=== PATIENT | female | born 1935 | race Two or more races ===

== ENCOUNTER → 2017-03-24 | Outpatient (REF) | payer MEDICARE ==
[2017-03-24 19:30] LABS: CALCIUM LEVEL 9.2 MG/DL (8.8-10.2); CREATININE FOR GFR 1.1 MG/DL (0.55-1.02); GLOMERULAR FILTRATION RATE 50.6 (>32)
== END ==
LOC: M SFHCCLAY 11:08
PROVIDERS: ATTEND Family Medicine
DX: E11.9 Type 2 diabetes mellitus without complications (principal); I10 Essential (primary) hypertension

== ENCOUNTER → 2017-06-17 | Outpatient (REF) | payer MEDICARE ==
[2017-06-17 17:08] LABS: ALBUMIN 3.5 GM/DL (3.2-5.2); ALBUMIN/GLOBULIN RATIO 1.03 (1.00-1.93); BILIRUBIN,TOTAL 0.4 MG/DL (0.2-1.0); CALCIUM LEVEL 9.2 MG/DL (8.8-10.2); CREATININE FOR GFR 1.16 MG/DL (0.55-1.02); GLOMERULAR FILTRATION RATE 47.5 (>32); TOTAL PROTEIN 6.9 GM/DL (6.4-8.2)
== END ==
LOC: M SFHCCLAY 09:49
PROVIDERS: ATTEND Family Medicine
DX: I10 Essential (primary) hypertension (principal); E11.9 Type 2 diabetes mellitus without complications; M35.3 Polymyalgia rheumatica; E55.9 Vitamin D deficiency, unspecified; R26.89 Other abnormalities of gait and mobility; G62.9 Polyneuropathy, unspecified; L72.3 Sebaceous cyst; M53.3 Sacrococcygeal disorders, not elsewhere classified

== ENCOUNTER → 2018-03-09 | Outpatient (CLI) | payer MEDICARE, MEDICAID | LOC: M CLY 11:25 | DX: M16.11 Unilateral primary osteoarthritis, right hip (principal); M25.851 Other specified joint disorders, right hip; M85.88 Other specified disorders of bone density and structure, other site; M25.711 Osteophyte, right shoulder; M25.811 Other specified joint disorders, right shoulder; M25.511 Pain in right shoulder; M53.3 Sacrococcygeal disorders, not elsewhere classified; E11.22 Type 2 diabetes mellitus with diabetic chronic kidney disease; Z98.890 Other specified postprocedural states | CPT/HCPCS: 73030; 80053 ==

== ENCOUNTER → 2018-03-09 | Outpatient (REF) | payer MEDICARE, MEDICAID ==
[2018-03-09 17:06] LABS: ALBUMIN 3.6 GM/DL (3.2-5.2); ALBUMIN/GLOBULIN RATIO 1.09 (1.00-1.93); ALKALINE PHOSPHATASE 51 U/L (45-117); ALT/SGPT 15 U/L (12-78); ANION GAP 5 MEQ/L (8-16); AST/SGOT 11 U/L (7-37); BILIRUBIN,TOTAL 0.2 MG/DL (0.2-1.0); BLOOD UREA NITROGEN 34 MG/DL (7-18); CALCIUM LEVEL 8.9 MG/DL (8.8-10.2); CARBON DIOXIDE LEVEL 28 MEQ/L (21-32); CHLORIDE LEVEL 111 MEQ/L (98-107); CREATININE FOR GFR 1.27 MG/DL (0.55-1.30); GLOMERULAR FILTRATION RATE 42.8 (>32); GLUCOSE, FASTING 132 MG/DL (70-100); SODIUM LEVEL 144 MEQ/L (136-145); TOTAL PROTEIN 6.9 GM/DL (6.4-8.2)
[2018-03-09 19:59] LABS: ESTIMATED AVERAGE GLUCOSE 134 MG/DL (60-110); HEMOGLOBIN A1c 6.3 %
== END ==
LOC: M SFHCCLAY 11:14
DX: E11.9 Type 2 diabetes mellitus without complications (principal)
CPT/HCPCS: 80053

== ENCOUNTER 2018-06-14 11:02 | Emergency (ER) | payer MEDICARE, MEDICAID ==
[2018-06-14] MEDS: LIDOCAINE 1% MDV 20ML VIAL SC (12:45)
[2018-06-14] MEDS: ADACEL/BOOSTRIX VACCINE (DIPHTH/PERTUSS/ACELL/TETANUS)0.5ML SYR (90715) IM (14:12)
== END 2018-06-14 14:30 | disposition home or self-care (01) ==
LOC: M ED 11:02
DX: S01.511A Laceration without foreign body of lip, initial encounter (principal); S41.102A Unspecified open wound of left upper arm, initial encounter; W01.0XXA Fall on same level from slipping, tripping and stumbling without subsequent striking against object, initial encounter; Y92.098 Other place in other non-institutional residence as the place of occurrence of the external cause; E11.9 Type 2 diabetes mellitus without complications; I12.9 Hypertensive chronic kidney disease with stage 1 through stage 4 chronic kidney disease, or unspecified chronic kidney disease; N18.3 Chronic kidney disease, stage 3 (moderate); Z88.0 Allergy status to penicillin; Z87.891 Personal history of nicotine dependence; Z96.641 Presence of right artificial hip joint; Z79.899 Other long term (current) drug therapy; Z79.52 Long term (current) use of systemic steroids; Z79.82 Long term (current) use of aspirin; Z79.84 Long term (current) use of oral hypoglycemic drugs
CPT/HCPCS: 90715

== ENCOUNTER 2018-07-17 15:36 | Inpatient (IN) | payer MEDICARE, MEDICAID ==
[2018-07-17] MEDS: FUROSEMIDE 40 MG/4 ML VIAL (J1940) IV (16:51)
[2018-07-17 17:05] LABS: BASO % 0.4 % (0.0-1.0); EOS # 0.1 10^3/uL (0.0-0.50); EOS % 0.5 % (0.0-3.0); HEMATOCRIT 26.1 % (36.0-47.0); HEMOGLOBIN 8.3 g/dl (12.0-15.5); IMMATURE GRANULOCYTE % 0.7 % (0-3.0); LYMPH # 1.9 10^3/uL (1.5-4.5); LYMPH % 18.5 % (24.0-44.0); MEAN CORPUSCULAR HEMOGLOBIN 29.9 pg (27.0-33.0); MEAN CORPUSCULAR HGB CONC 31.8 g/dl (32.0-36.5); MEAN CORPUSCULAR VOLUME 93.9 fl (80.0-96.0); MONO # 0.8 10^3/uL (0.0-0.8); MONO % 7.7 % (0.0-5.0); NEUTROPHILS # 7.3 10^3/uL (1.8-7.7); NEUTROPHILS % 72.2 % (36.0-66.0); PLATELET COUNT, AUTOMATED 265 10^3/uL (150-450); RED BLOOD COUNT 2.78 10^6/uL (4.00-5.40); RED CELL DISTRIBUTION WIDTH 15.4 % (11.5-14.5); WHITE BLOOD COUNT 10.1 10^3/uL (4.0-10.0)
[2018-07-17 17:30] LABS: ANION GAP 9 MEQ/L (8-16); BLOOD UREA NITROGEN 37 MG/DL (7-18); CALCIUM LEVEL 9.2 MG/DL (8.8-10.2); CARBON DIOXIDE LEVEL 23 MEQ/L (21-32); CHLORIDE LEVEL 113 MEQ/L (98-107); CPK CREATINE PHOSPHOKINASE 39 U/L (26-192); CREATININE FOR GFR 1.33 MG/DL (0.55-1.30); GLOMERULAR FILTRATION RATE 40.5 (>32); GLUCOSE, FASTING 132 MG/DL (70-100); MB/CK RELATIVE INDEX 3.33 (< OR =4); NT-PRO BNP 5359 PG/ML (<450); POTASSIUM SERUM 4.9 MEQ/L (3.5-5.1); SODIUM LEVEL 145 MEQ/L (136-145); TROPONIN I < 0.02 NG/ML (< 0.10)
[2018-07-17] MEDS ORDERED: GLUCOSE 4 GM CHEW TABLET PO (19:15)
[2018-07-17] MEDS ORDERED: DEXTROSE 50% 50 ML SYRINGE IV (19:15)
[2018-07-17] MEDS ORDERED: GLUCAGON FOR INJ 1 MG VIAL (J1610) SC (19:15)
[2018-07-17] MEDS ORDERED: ACETAMINOPHEN TAB 650MG DOSE (2X325MG) PO (19:30)
[2018-07-17 20:58] LABS: BEDSIDE GLUCOSE 89 MG/DL (83-110)
[2018-07-17] MEDS: SENOKOT S TAB PO (21:00)
[2018-07-17] MEDS: HumaLOG INSULIN (NovoLOG) PER UNIT SC (21:00)
[2018-07-17] MEDS: PREGABALIN 25 MG CAP (LYRICA) PO (21:39)
[2018-07-17] MEDS: VITAMIN D 1,000 INTERNATIONAL UNITS TABLET PO (21:42)
[2018-07-17] MEDS: MELOXICAM (MOBIC) 7.5 MG TAB PO (21:43)
[2018-07-17] MEDS: CARVedilol 12.5 MG TAB PO (21:43)
[2018-07-17] MEDS: HEPARIN SOD (PORCINE) 5000 UNITS/ML VIAL SC (21:44)
[2018-07-17 21:50] LABS: RETIC HEMOGLOBIN EQUIVALENT 33.3 pg (24-36); RETICULOCYTE # 54.6 10^9/L (17-77); RETICULOCYTE % 1.8 % (0.5-1.5)
[2018-07-17 23:39] LABS: CPK CREATINE PHOSPHOKINASE 42 U/L (26-192); FERRITIN 103 NG/ML (8-252); IRON (FE) 31 UG/DL (50-170); TOTAL IRON BINDING CAPACITY 309 UG/DL (250-450); TROPONIN I < 0.02 NG/ML (< 0.10)
[2018-07-18] MEDS: FUROSEMIDE 40 MG/4 ML VIAL (J1940) IV ×5 (00:43→23:42)
[2018-07-18 04:44] LABS: HEMATOCRIT 26.2 % (36.0-47.0); HEMOGLOBIN 8.5 g/dl (12.0-15.5); MEAN CORPUSCULAR HEMOGLOBIN 30.4 pg (27.0-33.0); MEAN CORPUSCULAR HGB CONC 32.4 g/dl (32.0-36.5); MEAN CORPUSCULAR VOLUME 93.6 fl (80.0-96.0); PLATELET COUNT, AUTOMATED 239 10^3/uL (150-450); RED CELL DISTRIBUTION WIDTH 15.1 % (11.5-14.5); WHITE BLOOD COUNT 10.8 10^3/uL (4.0-10.0)
[2018-07-18 05:13] LABS: ALBUMIN 3.2 GM/DL (3.2-5.2); ALBUMIN/GLOBULIN RATIO 1.19 (1.00-1.93); ALKALINE PHOSPHATASE 76 U/L (45-117); ALT/SGPT 13 U/L (12-78); ANION GAP 8 MEQ/L (8-16); AST/SGOT 9 U/L (7-37); BILIRUBIN,DIRECT 0.1 MG/DL (0.0-0.2); BILIRUBIN,TOTAL 0.4 MG/DL (0.2-1.0); BLOOD UREA NITROGEN 35 MG/DL (7-18); CALCIUM LEVEL 8.7 MG/DL (8.8-10.2); CARBON DIOXIDE LEVEL 29 MEQ/L (21-32); CHLORIDE LEVEL 110 MEQ/L (98-107); CPK CREATINE PHOSPHOKINASE 30 U/L (26-192); CREATININE FOR GFR 1.27 MG/DL (0.55-1.30); GLOMERULAR FILTRATION RATE 42.7 (>32); GLUCOSE, FASTING 94 MG/DL (70-100); MAGNESIUM LEVEL 1.6 MG/DL (1.8-2.4); MB/CK RELATIVE INDEX 3.67 (< OR =4); POTASSIUM SERUM 3.7 MEQ/L (3.5-5.1); SODIUM LEVEL 147 MEQ/L (136-145); TOTAL PROTEIN 5.9 GM/DL (6.4-8.2); TROPONIN I 0.02 NG/ML (< 0.10)
[2018-07-18] MEDS: MAGNESIUM OXIDE 400 MG TAB (MAG-OX) PO (06:45)
[2018-07-18] MEDS: HumaLOG INSULIN (NovoLOG) PER UNIT SC ×4 (07:30→20:29)
[2018-07-18] MEDS: SENOKOT S TAB PO ×2 (09:17→20:33)
[2018-07-18] MEDS: HEPARIN SOD (PORCINE) 5000 UNITS/ML VIAL SC ×2 (09:20→20:28)
[2018-07-18] MEDS: amLODIPine 10 MG TAB PO (09:20)
[2018-07-18] MEDS: ASPIRIN 81 MG ENTERIC TAB PO (09:20)
[2018-07-18] MEDS: CARVedilol 12.5 MG TAB PO ×2 (09:21→20:29)
[2018-07-18] MEDS: predniSONE 5 MG TAB PO (09:21)
[2018-07-18] MEDS: LOSARTAN 50 MG TAB PO (09:21)
[2018-07-18] MEDS: PREGABALIN 25 MG CAP (LYRICA) PO ×2 (09:38→20:33)
[2018-07-18 09:48] LABS: FOLATE > 24.0 NG/ML (>5.4)
[2018-07-18 12:04] LABS: BEDSIDE GLUCOSE 258 MG/DL (83-110)
[2018-07-18 16:39] LABS: BEDSIDE GLUCOSE 100 MG/DL (83-110)
[2018-07-18] MEDS: VITAMIN D 1,000 INTERNATIONAL UNITS TABLET PO (20:27)
[2018-07-18] MEDS: MELOXICAM (MOBIC) 7.5 MG TAB PO (20:28)
[2018-07-18 20:30] LABS: BEDSIDE GLUCOSE 278 MG/DL (83-110)
[2018-07-19] MEDS: FUROSEMIDE 40 MG/4 ML VIAL (J1940) IV (05:48)
[2018-07-19 06:20] LABS: HEMATOCRIT 25.6 % (36.0-47.0); HEMOGLOBIN 8.4 g/dl (12.0-15.5); MEAN CORPUSCULAR HEMOGLOBIN 30.1 pg (27.0-33.0); MEAN CORPUSCULAR HGB CONC 32.8 g/dl (32.0-36.5); MEAN CORPUSCULAR VOLUME 91.8 fl (80.0-96.0); PLATELET COUNT, AUTOMATED 243 10^3/uL (150-450); RED BLOOD COUNT 2.79 10^6/uL (4.00-5.40); RED CELL DISTRIBUTION WIDTH 14.8 % (11.5-14.5); WHITE BLOOD COUNT 11.1 10^3/uL (4.0-10.0)
[2018-07-19 06:45] LABS: ANION GAP 10 MEQ/L (8-16); BLOOD UREA NITROGEN 47 MG/DL (7-18); CALCIUM LEVEL 8.8 MG/DL (8.8-10.2); CARBON DIOXIDE LEVEL 27 MEQ/L (21-32); CHLORIDE LEVEL 107 MEQ/L (98-107); GLOMERULAR FILTRATION RATE 32.7 (>32); GLUCOSE, FASTING 102 MG/DL (70-100); MAGNESIUM LEVEL 1.9 MG/DL (1.8-2.4); POTASSIUM SERUM 3.6 MEQ/L (3.5-5.1); SODIUM LEVEL 144 MEQ/L (136-145)
[2018-07-19] MEDS: HumaLOG INSULIN (NovoLOG) PER UNIT SC ×4 (07:43→20:32)
[2018-07-19] MEDS: HEPARIN SOD (PORCINE) 5000 UNITS/ML VIAL SC ×2 (08:31→20:31)
[2018-07-19] MEDS: CARVedilol 12.5 MG TAB PO ×2 (08:32→20:30)
[2018-07-19] MEDS: amLODIPine 10 MG TAB PO (08:33)
[2018-07-19] MEDS: LOSARTAN 50 MG TAB PO (08:33)
[2018-07-19] MEDS: ASPIRIN 81 MG ENTERIC TAB PO (08:33)
[2018-07-19] MEDS: SENOKOT S TAB PO ×2 (08:34→20:31)
[2018-07-19] MEDS: predniSONE 5 MG TAB PO (08:34)
[2018-07-19] MEDS: PREGABALIN 25 MG CAP (LYRICA) PO ×2 (08:43→20:30)
[2018-07-19 12:08] LABS: BEDSIDE GLUCOSE 191 MG/DL (83-110)
[2018-07-19] MEDS: SLF 3 ML SYR IV ×2 (13:11→21:10)
[2018-07-19 17:35] LABS: BEDSIDE GLUCOSE 299 MG/DL (83-110)
[2018-07-19 20:18] LABS: BEDSIDE GLUCOSE 153 MG/DL (83-110)
[2018-07-19] MEDS: MELOXICAM (MOBIC) 7.5 MG TAB PO (20:31)
[2018-07-19] MEDS: VITAMIN D 1,000 INTERNATIONAL UNITS TABLET PO (20:31)
[2018-07-20] MEDS: SLF 3 ML SYR IV ×4 (05:54→20:34)
[2018-07-20 05:58] LABS: HEMATOCRIT 26.7 % (36.0-47.0); HEMOGLOBIN 8.6 g/dl (12.0-15.5); MEAN CORPUSCULAR HEMOGLOBIN 29.5 pg (27.0-33.0); MEAN CORPUSCULAR HGB CONC 32.2 g/dl (32.0-36.5); MEAN CORPUSCULAR VOLUME 91.4 fl (80.0-96.0); PLATELET COUNT, AUTOMATED 255 10^3/uL (150-450); RED BLOOD COUNT 2.92 10^6/uL (4.00-5.40); RED CELL DISTRIBUTION WIDTH 14.8 % (11.5-14.5); WHITE BLOOD COUNT 11.7 10^3/uL (4.0-10.0)
[2018-07-20 06:22] LABS: ANION GAP 8 MEQ/L (8-16); BLOOD UREA NITROGEN 44 MG/DL (7-18); CARBON DIOXIDE LEVEL 27 MEQ/L (21-32); CHLORIDE LEVEL 106 MEQ/L (98-107); CREATININE FOR GFR 1.79 MG/DL (0.55-1.30); GLOMERULAR FILTRATION RATE 28.7 (>32); GLUCOSE, FASTING 99 MG/DL (70-100); MAGNESIUM LEVEL 1.8 MG/DL (1.8-2.4); POTASSIUM SERUM 3.4 MEQ/L (3.5-5.1); SODIUM LEVEL 141 MEQ/L (136-145)
[2018-07-20] MEDS: HumaLOG INSULIN (NovoLOG) PER UNIT SC ×4 (06:50→20:33)
[2018-07-20] MEDS: PREGABALIN 25 MG CAP (LYRICA) PO ×2 (08:45→20:23)
[2018-07-20] MEDS: CARVedilol 12.5 MG TAB PO ×2 (08:45→20:24)
[2018-07-20] MEDS: SENOKOT S TAB PO ×2 (08:46→20:24)
[2018-07-20] MEDS: amLODIPine 10 MG TAB PO (08:46)
[2018-07-20] MEDS: predniSONE 5 MG TAB PO (08:46)
[2018-07-20] MEDS: ASPIRIN 81 MG ENTERIC TAB PO (08:46)
[2018-07-20] MEDS: HEPARIN SOD (PORCINE) 5000 UNITS/ML VIAL SC ×2 (08:47→20:25)
[2018-07-20 11:33] LABS: BEDSIDE GLUCOSE 298 MG/DL (83-110)
[2018-07-20 12:37] LABS: KETONE, URINE AUTO RFX NEGATIVE (NEGATIVE); NITRITE, URINE AUTO RFX NEGATIVE (NEGATIVE); RBC, URINE AUTO RFX 29 /HPF (0-3); SPECIFIC GRAVITY UR AUTO RFX 1.009 (1.002-1.035); SQUAM EPITHELIAL CELL UR AURFX 3 /HPF (0-6); TRANSITIONAL EPITHELIAL AU RFX 1 /HPF
[2018-07-20 12:38] LABS: LEUKOCYTE ESTERASE UR AUTO RFX 3+ (NEGATIVE); WBC, URINE AUTO RFX TNTC /HPF (0-3)
[2018-07-20] MEDS: CIPROFLOXACIN 400 MG in APPROPRIATE DILUENT 1 EA IV (15:59)
[2018-07-20 16:52] LABS: BEDSIDE GLUCOSE 182 MG/DL (83-110)
[2018-07-20] MEDS: MELOXICAM (MOBIC) 7.5 MG TAB PO (20:23)
[2018-07-20] MEDS: VITAMIN D 1,000 INTERNATIONAL UNITS TABLET PO (20:23)
[2018-07-20 20:34] LABS: BEDSIDE GLUCOSE 76 MG/DL (83-110)
[2018-07-21] MEDS: SLF 3 ML SYR IV (05:43)
[2018-07-21 05:53] LABS: HEMATOCRIT 26.4 % (36.0-47.0); HEMOGLOBIN 8.3 g/dl (12.0-15.5); MEAN CORPUSCULAR HEMOGLOBIN 29.6 pg (27.0-33.0); MEAN CORPUSCULAR HGB CONC 31.4 g/dl (32.0-36.5); MEAN CORPUSCULAR VOLUME 94.3 fl (80.0-96.0); PLATELET COUNT, AUTOMATED 250 10^3/uL (150-450); RED CELL DISTRIBUTION WIDTH 14.7 % (11.5-14.5); WHITE BLOOD COUNT 11.3 10^3/uL (4.0-10.0)
[2018-07-21 06:19] LABS: ANION GAP 8 MEQ/L (8-16); BLOOD UREA NITROGEN 42 MG/DL (7-18); CALCIUM LEVEL 8.6 MG/DL (8.8-10.2); CARBON DIOXIDE LEVEL 28 MEQ/L (21-32); CHLORIDE LEVEL 112 MEQ/L (98-107); CREATININE FOR GFR 1.55 MG/DL (0.55-1.30); GLOMERULAR FILTRATION RATE 33.9 (>32); GLUCOSE, FASTING 110 MG/DL (70-100); MAGNESIUM LEVEL 2.2 MG/DL (1.8-2.4); POTASSIUM SERUM 3.9 MEQ/L (3.5-5.1); SODIUM LEVEL 148 MEQ/L (136-145)
[2018-07-21 06:36] LABS: BEDSIDE GLUCOSE 180 MG/DL (83-110)
[2018-07-21] MEDS: HumaLOG INSULIN (NovoLOG) PER UNIT SC (07:25)
[2018-07-21] MEDS: ASPIRIN 81 MG ENTERIC TAB PO (09:13)
[2018-07-21] MEDS: SENOKOT S TAB PO (09:13)
[2018-07-21] MEDS: CARVedilol 12.5 MG TAB PO (09:13)
[2018-07-21] MEDS: PREGABALIN 25 MG CAP (LYRICA) PO (09:14)
[2018-07-21] MEDS: amLODIPine 10 MG TAB PO (09:14)
[2018-07-21] MEDS: predniSONE 5 MG TAB PO (09:14)
[2018-07-21 11:35] LABS: BEDSIDE GLUCOSE 142 MG/DL (83-110)
== END 2018-07-21 12:32 | disposition home or self-care (01) | DRG 291 ==
LOC: M ED 15:36 → M ED INP 19:16 → M PCU 20:35
DX: I13.0 Hypertensive heart and chronic kidney disease with heart failure and stage 1 through stage 4 chronic kidney disease, or unspecified chronic kidney disease (principal); I50.33 Acute on chronic diastolic (congestive) heart failure; N39.0 Urinary tract infection, site not specified; N18.3 Chronic kidney disease, stage 3 (moderate); E11.22 Type 2 diabetes mellitus with diabetic chronic kidney disease; Z85.3 Personal history of malignant neoplasm of breast; Z88.0 Allergy status to penicillin; Z92.21 Personal history of antineoplastic chemotherapy; Z92.3 Personal history of irradiation; Z96.653 Presence of artificial knee joint, bilateral; Z87.891 Personal history of nicotine dependence; Z79.82 Long term (current) use of aspirin; Z79.84 Long term (current) use of oral hypoglycemic drugs; Z79.52 Long term (current) use of systemic steroids

== ENCOUNTER → 2018-07-25 | Outpatient (REF) | payer MEDICARE, MEDICAID ==
[2018-07-26 11:57] LABS: BASO # 0.1 10^3/uL (0.0-0.2); BASO % 0.6 % (0.0-1.0); EOS # 0.2 10^3/uL (0.0-0.50); EOS % 2.6 % (0.0-3.0); HEMATOCRIT 25.9 % (36.0-47.0); HEMOGLOBIN 8.1 g/dl (12.0-15.5); IMMATURE GRANULOCYTE % 0.5 % (0-3.0); LYMPH # 1.6 10^3/uL (1.5-4.5); LYMPH % 19.6 % (24.0-44.0); MEAN CORPUSCULAR HEMOGLOBIN 30.1 pg (27.0-33.0); MEAN CORPUSCULAR HGB CONC 31.3 g/dl (32.0-36.5); MEAN CORPUSCULAR VOLUME 96.3 fl (80.0-96.0); MONO # 0.5 10^3/uL (0.0-0.8); MONO % 5.7 % (0.0-5.0); NEUTROPHILS # 5.8 10^3/uL (1.8-7.7); PLATELET COUNT, AUTOMATED 239 10^3/uL (150-450); RED BLOOD COUNT 2.69 10^6/uL (4.00-5.40); RED CELL DISTRIBUTION WIDTH 15.2 % (11.5-14.5); WHITE BLOOD COUNT 8.1 10^3/uL (4.0-10.0)
[2018-07-26 12:08] LABS: ANION GAP 9 MEQ/L (8-16); BLOOD UREA NITROGEN 44 MG/DL (7-18); CALCIUM LEVEL 8.9 MG/DL (8.8-10.2); CARBON DIOXIDE LEVEL 23 MEQ/L (21-32); CHLORIDE LEVEL 111 MEQ/L (98-107); CREATININE FOR GFR 1.73 MG/DL (0.55-1.30); GLOMERULAR FILTRATION RATE 29.9 (>32); GLUCOSE, FASTING 196 MG/DL (70-100); POTASSIUM SERUM 5.2 MEQ/L (3.5-5.1); SODIUM LEVEL 143 MEQ/L (136-145)
== END ==
LOC: M SFHCCLAY 14:46
DX: I50.33 Acute on chronic diastolic (congestive) heart failure (principal); R53.83 Other fatigue; I11.0 Hypertensive heart disease with heart failure
CPT/HCPCS: 80048

== ENCOUNTER 2018-07-26 13:51 | Emergency (ER) | payer MEDICARE, MEDICAID ==
[2018-07-26 15:20] LABS: BASO % 0.5 % (0.0-1.0); EOS # 0.2 10^3/uL (0.0-0.50); EOS % 1.8 % (0.0-3.0); HEMATOCRIT 24.7 % (36.0-47.0); HEMOGLOBIN 7.8 g/dl (12.0-15.5); IMMATURE GRANULOCYTE % 0.4 % (0-3.0); LYMPH # 1.5 10^3/uL (1.5-4.5); LYMPH % 17.8 % (24.0-44.0); MEAN CORPUSCULAR HEMOGLOBIN 30.2 pg (27.0-33.0); MEAN CORPUSCULAR HGB CONC 31.6 g/dl (32.0-36.5); MEAN CORPUSCULAR VOLUME 95.7 fl (80.0-96.0); MONO # 0.7 10^3/uL (0.0-0.8); MONO % 7.8 % (0.0-5.0); NEUTROPHILS % 71.7 % (36.0-66.0); PLATELET COUNT, AUTOMATED 250 10^3/uL (150-450); RED BLOOD COUNT 2.58 10^6/uL (4.00-5.40); RED CELL DISTRIBUTION WIDTH 15.1 % (11.5-14.5); WHITE BLOOD COUNT 8.3 10^3/uL (4.0-10.0)
[2018-07-26 15:30] LABS: INR 1.02; PROTHROMBIN TIME 13.5 SECONDS (12.1-14.4)
[2018-07-26 15:31] LABS: PARTIAL THROMBOPLASTIN TIME 24.5 SECONDS (25.4-37.6)
[2018-07-26 15:40] LABS: ANION GAP 7 MEQ/L (8-16); BLOOD UREA NITROGEN 42 MG/DL (7-18); CALCIUM LEVEL 8.9 MG/DL (8.8-10.2); CARBON DIOXIDE LEVEL 24 MEQ/L (21-32); CHLORIDE LEVEL 110 MEQ/L (98-107); CREATININE FOR GFR 1.68 MG/DL (0.55-1.30); GLOMERULAR FILTRATION RATE 30.9 (>32); GLUCOSE, FASTING 152 MG/DL (70-100); SODIUM LEVEL 141 MEQ/L (136-145)
[2018-07-26 17:31] LABS: ALBUMIN 3.4 GM/DL (3.2-5.2); ALBUMIN/GLOBULIN RATIO 1.26 (1.00-1.93); ALKALINE PHOSPHATASE 72 U/L (45-117); ALT/SGPT 16 U/L (12-78); AST/SGOT 13 U/L (7-37); BILIRUBIN,DIRECT < 0.1 MG/DL (0.0-0.2); BILIRUBIN,TOTAL 0.3 MG/DL (0.2-1.0); CK-MB VALUE MASS < 1.0 NG/ML (<3.6); CPK CREATINE PHOSPHOKINASE 32 U/L (26-192); FERRITIN 81 NG/ML (8-252); IRON (FE) 36 UG/DL (50-170); MAGNESIUM LEVEL 2.2 MG/DL (1.8-2.4); MB/CK RELATIVE INDEX 3.12 (< OR =4); NT-PRO BNP 3749 PG/ML (<450); PERCENT SATURATION 11.3 % (13.2-45.0); RETIC HEMOGLOBIN EQUIVALENT 32.2 pg (24-36); RETICULOCYTE # 47.5 10^9/L (17-77); RETICULOCYTE % 1.9 % (0.5-1.5); TOTAL IRON BINDING CAPACITY 319 UG/DL (250-450); TOTAL PROTEIN 6.1 GM/DL (6.4-8.2); TROPONIN I < 0.02 NG/ML (< 0.10)
[2018-07-26 18:49] LABS: BEDSIDE GLUCOSE 107 MG/DL (83-110)
[2018-07-26] MEDS: CYANOCOBALAMIN 1,000 MCG/ML VIAL (J3420) IM (22:10)
== END 2018-07-26 22:23 | disposition home or self-care (01) ==
LOC: M ED 13:51
DX: I50.9 Heart failure, unspecified (principal); D64.9 Anemia, unspecified; E53.8 Deficiency of other specified B group vitamins; Z88.0 Allergy status to penicillin; Z79.899 Other long term (current) drug therapy; Z87.891 Personal history of nicotine dependence
CPT/HCPCS: J3420

== ENCOUNTER → 2018-07-28 | Outpatient (REF) | payer MEDICARE, MEDICAID ==
[2018-07-28 16:30] LABS: BASO % 0.4 % (0.0-1.0); EOS # 0.3 10^3/uL (0.0-0.50); EOS % 3.3 % (0.0-3.0); HEMATOCRIT 26.6 % (36.0-47.0); HEMOGLOBIN 8.3 g/dl (12.0-15.5); IMMATURE GRANULOCYTE % 0.7 % (0-3.0); LYMPH # 1.9 10^3/uL (1.5-4.5); LYMPH % 18.5 % (24.0-44.0); MEAN CORPUSCULAR HEMOGLOBIN 30.6 pg (27.0-33.0); MEAN CORPUSCULAR HGB CONC 31.2 g/dl (32.0-36.5); MEAN CORPUSCULAR VOLUME 98.2 fl (80.0-96.0); MONO # 0.8 10^3/uL (0.0-0.8); MONO % 7.5 % (0.0-5.0); NEUTROPHILS # 7.1 10^3/uL (1.8-7.7); NEUTROPHILS % 69.6 % (36.0-66.0); PLATELET COUNT, AUTOMATED 255 10^3/uL (150-450); RED BLOOD COUNT 2.71 10^6/uL (4.00-5.40); WHITE BLOOD COUNT 10.2 10^3/uL (4.0-10.0)
[2018-07-28 17:45] LABS: ALBUMIN 3.2 GM/DL (3.2-5.2); ALBUMIN/GLOBULIN RATIO 1.07 (1.00-1.93); ALKALINE PHOSPHATASE 76 U/L (45-117); ALT/SGPT 14 U/L (12-78); ANION GAP 10 MEQ/L (8-16); AST/SGOT 11 U/L (7-37); BILIRUBIN,TOTAL 0.2 MG/DL (0.2-1.0); BLOOD UREA NITROGEN 44 MG/DL (7-18); CALCIUM LEVEL 8.6 MG/DL (8.8-10.2); CARBON DIOXIDE LEVEL 23 MEQ/L (21-32); CHLORIDE LEVEL 112 MEQ/L (98-107); CREATININE FOR GFR 1.75 MG/DL (0.55-1.30); GLOMERULAR FILTRATION RATE 29.5 (>32); GLUCOSE, FASTING 183 MG/DL (70-100); POTASSIUM SERUM 4.7 MEQ/L (3.5-5.1); SODIUM LEVEL 145 MEQ/L (136-145); TOTAL PROTEIN 6.2 GM/DL (6.4-8.2)
== END ==
LOC: M SFHCCLAY 11:22
DX: N18.3 Chronic kidney disease, stage 3 (moderate) (principal); D64.9 Anemia, unspecified; I50.33 Acute on chronic diastolic (congestive) heart failure
CPT/HCPCS: 80053

== ENCOUNTER 2018-08-06 12:52 | Inpatient (IN) | payer MEDICARE, MEDICAID ==
[2018-08-06 13:49] LABS: ABG BASE EXCESS -4.7 (-2.0-2.0); ABG HCO3 19.9 MEQ/L (22.0-26.0); ABG PARTIAL PRESSURE CO2 34.8 mmHg (35.0-45.0); ABG PARTIAL PRESSURE O2 76.1 mmHg (75.0-100.0); ABG STANDARD HCO3 20.5 MEQ/L (22.0-26.0); ABG pH (ARTERIAL) 7.376 UNITS (7.350-7.450)
[2018-08-06] MEDS: FUROSEMIDE 100 MG/10 ML VIAL (J1940) IV (14:09)
[2018-08-06 14:21] LABS: ALBUMIN 3.5 GM/DL (3.2-5.2); ALBUMIN/GLOBULIN RATIO 1.21 (1.00-1.93); ALKALINE PHOSPHATASE 79 U/L (45-117); ALT/SGPT 14 U/L (12-78); ANION GAP 12 MEQ/L (8-16); AST/SGOT 10 U/L (7-37); BILIRUBIN,DIRECT 0.1 MG/DL (0.0-0.2); BILIRUBIN,TOTAL 0.4 MG/DL (0.2-1.0); BLOOD UREA NITROGEN 43 MG/DL (7-18); CALCIUM LEVEL 8.2 MG/DL (8.8-10.2); CARBON DIOXIDE LEVEL 21 MEQ/L (21-32); CHLORIDE LEVEL 113 MEQ/L (98-107); CK-MB VALUE MASS < 1.0 NG/ML (<3.6); CPK CREATINE PHOSPHOKINASE 29 U/L (26-192); CREATININE FOR GFR 1.67 MG/DL (0.55-1.30); GLOMERULAR FILTRATION RATE 31.1 (>32); GLUCOSE, FASTING 185 MG/DL (70-100); MB/CK RELATIVE INDEX 3.45 (< OR =4); NT-PRO BNP 5421 PG/ML (<450); POTASSIUM SERUM 4.4 MEQ/L (3.5-5.1); SODIUM LEVEL 146 MEQ/L (136-145); THYROID STIMULATING HORMONE 0.943 uIU/ML (0.358-3.740); THYROXINE (T4) 8.8 UG/DL (4.5-12.0); TOTAL PROTEIN 6.4 GM/DL (6.4-8.2); TROPONIN I < 0.02 NG/ML (< 0.10)
[2018-08-06 14:23] LABS: INFLUENZA A AMPLIFICATION NEGATIVE (NEGATIVE); INFLUENZA B AMPLIFICATION NEGATIVE (NEGATIVE)
[2018-08-06 14:25] LABS: BASO % 0.4 % (0.0-1.0); EOS # 0.1 10^3/uL (0.0-0.50); EOS % 0.9 % (0.0-3.0); HEMATOCRIT 26.1 % (36.0-47.0); HEMOGLOBIN 8.2 g/dl (12.0-15.5); IMMATURE GRANULOCYTE % 0.4 % (0-3.0); LYMPH # 1.3 10^3/uL (1.5-4.5); LYMPH % 14.5 % (24.0-44.0); MEAN CORPUSCULAR HEMOGLOBIN 30.1 pg (27.0-33.0); MEAN CORPUSCULAR HGB CONC 31.4 g/dl (32.0-36.5); MONO # 0.6 10^3/uL (0.0-0.8); MONO % 6.1 % (0.0-5.0); NEUTROPHILS % 77.7 % (36.0-66.0); RED BLOOD COUNT 2.72 10^6/uL (4.00-5.40); RED CELL DISTRIBUTION WIDTH 14.9 % (11.5-14.5); WHITE BLOOD COUNT 9.1 10^3/uL (4.0-10.0)
[2018-08-06 14:50] LABS: PLATELET COUNT, AUTOMATED 212 10^3/uL (150-450); POS COUNT POS FLAG
[2018-08-06] MEDS ORDERED: IPRATROPIUM 0.5MG/ALBUTEROL 2.5MG INH SOL UD 3ML (DUONEB)(J7620) NEB (16:15)
[2018-08-06] MEDS ORDERED: SLF 3 ML SYR IV (18:30)
[2018-08-06 19:26] LABS: CK-MB VALUE MASS < 1.0 NG/ML (<3.6); CPK CREATINE PHOSPHOKINASE 32 U/L (26-192); MB/CK RELATIVE INDEX 3.12 (< OR =4)
[2018-08-06] MEDS: FUROSEMIDE 40 MG/4 ML VIAL (J1940) IV (20:44)
[2018-08-06] MEDS: HEPARIN SOD (PORCINE) 5000 UNITS/ML VIAL SC (20:44)
[2018-08-06] MEDS: CARVedilol 12.5 MG TAB PO (20:45)
[2018-08-06] MEDS: SLF 3 ML SYR IV (20:45)
[2018-08-06] MEDS: PREGABALIN 25 MG CAP (LYRICA) PO (22:56)
[2018-08-06] MEDS: MELOXICAM (MOBIC) 7.5 MG TAB PO (22:56)
[2018-08-07 00:37] LABS: CK-MB VALUE MASS < 1.0 NG/ML (<3.6); CPK CREATINE PHOSPHOKINASE 35 U/L (26-192); MB/CK RELATIVE INDEX 2.86 (< OR =4)
[2018-08-07] MEDS: FUROSEMIDE 40 MG/4 ML VIAL (J1940) IV ×3 (04:57→15:06)
[2018-08-07] MEDS: HEPARIN SOD (PORCINE) 5000 UNITS/ML VIAL SC ×3 (04:57→18:29)
[2018-08-07] MEDS: SLF 3 ML SYR IV ×3 (04:58→22:00)
[2018-08-07 07:29] LABS: CK-MB VALUE MASS < 1.0 NG/ML (<3.6); CPK CREATINE PHOSPHOKINASE 27 U/L (26-192)
[2018-08-07 07:35] LABS: BEDSIDE GLUCOSE 108 MG/DL (83-110)
[2018-08-07 09:01] LABS: HEMATOCRIT 24.8 % (36.0-47.0); MEAN CORPUSCULAR HEMOGLOBIN 30.1 pg (27.0-33.0); MEAN CORPUSCULAR HGB CONC 32.3 g/dl (32.0-36.5); MEAN CORPUSCULAR VOLUME 93.2 fl (80.0-96.0); PLATELET COUNT, AUTOMATED 236 10^3/uL (150-450); RED BLOOD COUNT 2.66 10^6/uL (4.00-5.40); RED CELL DISTRIBUTION WIDTH 14.8 % (11.5-14.5); WHITE BLOOD COUNT 10.8 10^3/uL (4.0-10.0)
[2018-08-07 09:09] LABS: ALBUMIN 3.3 GM/DL (3.2-5.2); ALBUMIN/GLOBULIN RATIO 1.06 (1.00-1.93); ALKALINE PHOSPHATASE 73 U/L (45-117); ALT/SGPT 12 U/L (12-78); ANION GAP 10 MEQ/L (8-16); AST/SGOT 8 U/L (7-37); BILIRUBIN,DIRECT 0.1 MG/DL (0.0-0.2); BILIRUBIN,TOTAL 0.3 MG/DL (0.2-1.0); BLOOD UREA NITROGEN 39 MG/DL (7-18); CALCIUM LEVEL 9.3 MG/DL (8.8-10.2); CARBON DIOXIDE LEVEL 26 MEQ/L (21-32); CHLORIDE LEVEL 109 MEQ/L (98-107); CREATININE FOR GFR 1.61 MG/DL (0.55-1.30); GLOMERULAR FILTRATION RATE 32.5 (>32); GLUCOSE, FASTING 105 MG/DL (70-100); MAGNESIUM LEVEL 1.7 MG/DL (1.8-2.4); POTASSIUM SERUM 3.5 MEQ/L (3.5-5.1); SODIUM LEVEL 145 MEQ/L (136-145); TOTAL PROTEIN 6.4 GM/DL (6.4-8.2)
[2018-08-07] MEDS: POTASSIUM CHLORIDE 10 MEQ SR TABLET PO (09:55)
[2018-08-07] MEDS: amLODIPine 10 MG TAB PO (09:55)
[2018-08-07] MEDS: CARVedilol 12.5 MG TAB PO ×2 (09:56→20:25)
[2018-08-07] MEDS: PREGABALIN 25 MG CAP (LYRICA) PO ×2 (09:56→20:21)
[2018-08-07] MEDS: MAGNESIUM OXIDE 400 MG TAB (MAG-OX) PO (09:57)
[2018-08-07] MEDS ORDERED: GLUCAGON FOR INJ 1 MG VIAL (J1610) SC (14:00)
[2018-08-07] MEDS ORDERED: DEXTROSE 50% 50 ML SYRINGE IV (14:00)
[2018-08-07] MEDS ORDERED: GLUCOSE 4 GM CHEW TABLET PO (14:00)
[2018-08-07] MEDS: ACETAMINOPHEN TAB 650MG DOSE (2X325MG) PO (14:30)
[2018-08-07 14:33] LABS: RETIC HEMOGLOBIN EQUIVALENT 33.1 pg (24-36); RETICULOCYTE # 38.3 10^9/L (17-77); RETICULOCYTE % 1.4 % (0.5-1.5)
[2018-08-07 14:45] LABS: GOLD SPEC TUBE RECIEVED
[2018-08-07] MEDS: predniSONE 5 MG TAB PO (15:05)
[2018-08-07] MEDS: HumaLOG INSULIN (NovoLOG) PER UNIT SC ×3 (15:05→20:26)
[2018-08-07 16:10] LABS: HEMOGLOBIN 8.4 g/dl (12.0-15.5)
[2018-08-07 18:07] LABS: BEDSIDE GLUCOSE 130 MG/DL (83-110)
[2018-08-07 20:08] LABS: BEDSIDE GLUCOSE 262 MG/DL (83-110)
[2018-08-07] MEDS: MELOXICAM (MOBIC) 7.5 MG TAB PO (20:22)
[2018-08-08] MEDS: FUROSEMIDE 40 MG/4 ML VIAL (J1940) IV ×2 (00:31→12:28)
[2018-08-08] MEDS: HEPARIN SOD (PORCINE) 5000 UNITS/ML VIAL SC ×3 (01:03→17:48)
[2018-08-08] MEDS: SLF 3 ML SYR IV ×3 (06:00→21:52)
[2018-08-08 06:01] LABS: HEMATOCRIT 26.1 % (36.0-47.0); HEMOGLOBIN 8.4 g/dl (12.0-15.5); MEAN CORPUSCULAR HEMOGLOBIN 29.7 pg (27.0-33.0); MEAN CORPUSCULAR HGB CONC 32.2 g/dl (32.0-36.5); MEAN CORPUSCULAR VOLUME 92.2 fl (80.0-96.0); PLATELET COUNT, AUTOMATED 234 10^3/uL (150-450); RED BLOOD COUNT 2.83 10^6/uL (4.00-5.40); RED CELL DISTRIBUTION WIDTH 14.4 % (11.5-14.5); WHITE BLOOD COUNT 8.5 10^3/uL (4.0-10.0)
[2018-08-08 06:26] LABS: ALBUMIN 3.2 GM/DL (3.2-5.2); ALKALINE PHOSPHATASE 74 U/L (45-117); ALT/SGPT 14 U/L (12-78); ANION GAP 8 MEQ/L (8-16); AST/SGOT 8 U/L (7-37); BILIRUBIN,TOTAL 0.3 MG/DL (0.2-1.0); BLOOD UREA NITROGEN 46 MG/DL (7-18); CALCIUM LEVEL 9.1 MG/DL (8.8-10.2); CARBON DIOXIDE LEVEL 29 MEQ/L (21-32); CHLORIDE LEVEL 105 MEQ/L (98-107); CREATININE FOR GFR 1.72 MG/DL (0.55-1.30); GLOMERULAR FILTRATION RATE 30.1 (>32); GLUCOSE, FASTING 118 MG/DL (70-100); MAGNESIUM LEVEL 1.9 MG/DL (1.8-2.4); POTASSIUM SERUM 3.8 MEQ/L (3.5-5.1); SODIUM LEVEL 142 MEQ/L (136-145); TOTAL PROTEIN 6.1 GM/DL (6.4-8.2)
[2018-08-08] MEDS: HumaLOG INSULIN (NovoLOG) PER UNIT SC ×4 (08:18→20:26)
[2018-08-08] MEDS: amLODIPine 10 MG TAB PO (08:18)
[2018-08-08] MEDS: CARVedilol 12.5 MG TAB PO ×2 (08:18→20:21)
[2018-08-08] MEDS: PREGABALIN 25 MG CAP (LYRICA) PO ×2 (08:18→20:21)
[2018-08-08] MEDS: predniSONE 5 MG TAB PO (08:19)
[2018-08-08 11:51] LABS: BEDSIDE GLUCOSE 105 MG/DL (83-110)
[2018-08-08 14:59] LABS: CK-MB VALUE MASS < 1.0 NG/ML (<3.6); CPK CREATINE PHOSPHOKINASE 24 U/L (26-192)
[2018-08-08 15:00] LABS: TROPONIN I < 0.02 NG/ML (< 0.10)
[2018-08-08 17:08] LABS: BEDSIDE GLUCOSE 213 MG/DL (83-110)
[2018-08-08] MEDS: FUROSEMIDE 40 MG TAB PO (17:48)
[2018-08-08 17:54] LABS: CK-MB VALUE MASS < 1.0 NG/ML (<3.6); CPK CREATINE PHOSPHOKINASE 35 U/L (26-192); MB/CK RELATIVE INDEX 2.86 (< OR =4); TROPONIN I < 0.02 NG/ML (< 0.10)
[2018-08-08 18:39] LABS: MB/CK RELATIVE INDEX 4.17 (< OR =4)
[2018-08-08 19:56] LABS: BEDSIDE GLUCOSE 111 MG/DL (83-110)
[2018-08-08] MEDS: MELOXICAM (MOBIC) 7.5 MG TAB PO (20:21)
[2018-08-08] MEDS: VITAMIN D 1,000 INTERNATIONAL UNITS TABLET PO (20:21)
[2018-08-09] MEDS: HEPARIN SOD (PORCINE) 5000 UNITS/ML VIAL SC ×2 (01:00→08:19)
[2018-08-09 05:46] LABS: HEMATOCRIT 26.1 % (36.0-47.0); HEMOGLOBIN 8.1 g/dl (12.0-15.5); MEAN CORPUSCULAR HEMOGLOBIN 29.3 pg (27.0-33.0); MEAN CORPUSCULAR VOLUME 94.6 fl (80.0-96.0); PLATELET COUNT, AUTOMATED 235 10^3/uL (150-450); RED BLOOD COUNT 2.76 10^6/uL (4.00-5.40); RED CELL DISTRIBUTION WIDTH 14.5 % (11.5-14.5); WHITE BLOOD COUNT 9.4 10^3/uL (4.0-10.0)
[2018-08-09] MEDS: SLF 3 ML SYR IV (06:00)
[2018-08-09 06:02] LABS: ALBUMIN 3.1 GM/DL (3.2-5.2); ALBUMIN/GLOBULIN RATIO 1.03 (1.00-1.93); ALKALINE PHOSPHATASE 69 U/L (45-117); ALT/SGPT 13 U/L (12-78); ANION GAP 11 MEQ/L (8-16); AST/SGOT 8 U/L (7-37); BILIRUBIN,TOTAL 0.3 MG/DL (0.2-1.0); BLOOD UREA NITROGEN 50 MG/DL (7-18); CALCIUM LEVEL 8.8 MG/DL (8.8-10.2); CARBON DIOXIDE LEVEL 27 MEQ/L (21-32); CHLORIDE LEVEL 105 MEQ/L (98-107); CREATININE FOR GFR 1.76 MG/DL (0.55-1.30); GLOMERULAR FILTRATION RATE 29.3 (>32); GLUCOSE, FASTING 106 MG/DL (70-100); MAGNESIUM LEVEL 2.1 MG/DL (1.8-2.4); POTASSIUM SERUM 3.7 MEQ/L (3.5-5.1); SODIUM LEVEL 143 MEQ/L (136-145); TOTAL PROTEIN 6.1 GM/DL (6.4-8.2)
[2018-08-09] MEDS: HumaLOG INSULIN (NovoLOG) PER UNIT SC (07:48)
[2018-08-09] MEDS: PREGABALIN 25 MG CAP (LYRICA) PO (08:18)
[2018-08-09] MEDS: amLODIPine 10 MG TAB PO (08:18)
[2018-08-09] MEDS: predniSONE 5 MG TAB PO (08:18)
[2018-08-09] MEDS: FUROSEMIDE 40 MG TAB PO (08:18)
[2018-08-09] MEDS: CARVedilol 12.5 MG TAB PO (08:19)
== END 2018-08-09 12:26 | disposition home or self-care (01) | DRG 291 ==
LOC: M ED 12:52 → M ED INP 16:08 → M PCU 18:18
DX: I13.0 Hypertensive heart and chronic kidney disease with heart failure and stage 1 through stage 4 chronic kidney disease, or unspecified chronic kidney disease (principal); I50.33 Acute on chronic diastolic (congestive) heart failure; E87.2 Acidosis; Z66 Do not resuscitate; E11.22 Type 2 diabetes mellitus with diabetic chronic kidney disease; M19.90 Unspecified osteoarthritis, unspecified site; D63.1 Anemia in chronic kidney disease; M35.3 Polymyalgia rheumatica; N18.3 Chronic kidney disease, stage 3 (moderate); Z85.3 Personal history of malignant neoplasm of breast; Z92.21 Personal history of antineoplastic chemotherapy; Z92.3 Personal history of irradiation; Z96.653 Presence of artificial knee joint, bilateral; Z87.891 Personal history of nicotine dependence; Z79.84 Long term (current) use of oral hypoglycemic drugs; Z79.899 Other long term (current) drug therapy; Z88.0 Allergy status to penicillin